=== PATIENT | female | born 2000 | race Caucasian/White ===

== ENCOUNTER 2025-03-25 21:41 | Emergency (ER) | payer OTHER ==
[~2025-03-25] VITALS: Ht 160 cm; Wt 57.7 kg
[2025-03-26] MEDS: KETOROLAC 30 MG/ML 1 ML VIAL IM ONE (02:05)
[2025-03-26] MEDS ORDERED: CYCL-707 PO (02:57)
[2025-03-26 03:09] VITALS: BP 132/74; TEMP 97.5; O2SAT 98
== END 2025-03-26 03:10 | disposition home or self-care (01) ==
LOC: M ED 21:41
DX: S43.401A Unspecified sprain of right shoulder joint, initial encounter (principal); Y92.9 Unspecified place or not applicable; Y93.9 Activity, unspecified; Y99.9 Unspecified external cause status; Z79.899 Other long term (current) drug therapy
CPT/HCPCS: 73030; 96372; 99283; J1885